=== PATIENT | male | born 1960 | race African-American/Black ===

== ENCOUNTER 2017-09-20 21:41 | Inpatient (IN) | payer OTHER ==
[~2017-09-20] VITALS: Ht 177.8 cm; Wt 113.4 kg
--- NOTE | ~2017-09-20 | 2DMMODE ---
[facility] [address] [place] [address] 2 D/M-MODE ECHOCARDIOGRAM Name: MIHIR HAGEN Room #: 357-P ADM IN M.R.#: [id number] Admission: 09/21/17 Attend Phys: Darell Noriega MD Discharge: Date of : 58 Date of Service: 09/21/17 1207 Report #: [id number] THIS REPORT FOR: //name// APPROVED REPORT Study performed: 09/21/2017 09:59:11 EXAM: Comprehensive 2D, Doppler, and color-flow Echocardiogram Patient Location: Echo lab Room #: 357 Status: routine BSA: 2.29 HR: 87 bpm BP: 167/108 mmHg Other Information Study Quality: Good Indications Hypertension/HDD 2D Dimensions RVDd: 46.10 mm LVEF(%): 80.11 (>50%) IVSd: 11.59 (7-11mm) LVOT Diam: 23.95 (18-24mm) LVDd: 66.34 mm PWd: 9.94 (7-11mm) Ascending Ao: 38.44 (22-36mm) LVDs: 33.26 (25-40mm) Aortic Root: 33.43 mm IVC: 12.00 mm Cabello's LVEF: 80.11 % Volumes Left Atrial Volume (Systole) Single Plane 4CH: 77.36 mL Single Plane 2CH: 82.48 mL LA ESV Index: 38.00 mL/m2 Aortic Valve AoV Peak Jeremias.: 1.56 m/s AO Peak Gr.: 9.78 mmHg LVOT Max P.80 mmHg LVOT Max V: 0.98 m/s RIGO Vmax: 2.81 cm2 Mitral Valve E/A Ratio: 1.0 MV Decel. Time: 111.80 ms MV E Max Jeremias.: 0.89 m/s [facility] [place] [address] 2 D/M-MODE ECHOCARDIOGRAM Name: MIHIR HAGEN Room #: 357-P [facility] IN M.R.#: [id number] Admission: 09/21/17 Attend Phys: Darell Noriega MD Discharge: Date of : 58 Date of Service: 09/21/17 1207 Report #: [id number] MV A Jeremias.: 0.91 m/s MV PHT: 32.42 ms IVRT: 96.89 ms Pulmonary Valve PV Peak Jeremias.: 1.46 m/s PV Peak Gr.: 8.54 mmHg Pulmonary Vein P Vein S: 0.46 m/s P Vein A: 0.25 m/s P Vein D: 0.32 m/s P Vein S/D Ratio: 1.44 Tricuspid Valve TR Peak Jeremias.: 1.44 m/s TR Peak Gr.: 8.25 mmHg Left Ventricle The left ventricle is normal size. There is normal LV segmental wall motion. Mild concentric left ventricular hypertrophy. The left ventricular systolic function is normal. The left ventricular ejection fraction is within the normal range. LVEF is 55-60%. The left ventricular diastolic function is normal. Right Ventricle The right ventricle is normal size. The right ventricular systolic function is normal. Atria Left atrium is dilated. The right atrium size is normal. Aortic Valve The aortic valve is normal in structure. No aortic regurgitation is present. There is no aortic valvular stenosis. Mitral Valve The mitral valve is normal in structure. Trace mitral regurgitation. No evidence of mitral valve stenosis. Tricuspid Valve The tricuspid valve is normal in structure. Trace tricuspid regurgitation. Unable to assess PA pressure. Pulmonic Valve The pulmonary valve is normal in structure. There is no pulmonic valvular regurgitation. [facility] [address] [place] [address] 2 D/M-MODE ECHOCARDIOGRAM Name: MIHIR HAGEN Room #: 357-P [facility] IN ..#: [id number] Admission: 09/21/17 Attend Phys: Darell Noriega MD Discharge: Date of : 58 Date of Service: 09/21/17 1207 Report #: [id number] Great Vessels The aortic root is normal in size. IVC is normal in size and collapses >50% with inspiration. Pericardium There is no pericardial effusion. <Conclusion> The left ventricle is normal size. Mild concentric left ventricular hypertrophy. LVEF is 55-60%. Left atrium is dilated. The aortic valve is normal in structure. The mitral valve is normal in structure. Trace mitral regurgitation. The tricuspid valve is normal in structure. Trace tricuspid regurgitation. Unable to assess PA pressure. The pulmonary valve is normal in structure. There is no pericardial effusion. <ELECTRONICALLY SIGNED> By: Carrington Smith MD 09/21/171206 06 06 Carrington Smith MD /INF
--- NOTE | ~2017-09-20 | EKG ---
[place] [address] [facility] [place] [address] ELECTROCARDIOGRAM REPORT Name: BRIDGER HAGENNDRE Room #: 357-P ADM IN M.R.#: [id number] Admission: 09/21/17 Attend Phys: Feng Ley MD Discharge: Date of : 58 Report #: [id number] THIS REPORT FOR: //name// [facility] ED Test Date: 2017-09-20 Test Time: 22:49:56 Pat Name: MIHIR HAGEN Department: Room: Gender: M Launch Check Out: PAM : 1960 Requested By: Evelyn Chinchilla Order Number: [id number] MD: Les López Measurements Intervals [place] Rate: 95 P: 52 DE: 162 QRS: 18 QRSD: 111 T: 187 QT: 356 QTc: 448 Interpretive Statements Sinus rhythm Biatrial enlargement Left ventricular hypertrophy Abnormal T, consider ischemia No previous ECG available for comparison Electronically Signed On 09-21-2017 7:20:40 CDT by Les López [email or web address] <ELECTRONICALLY SIGNED> By: Les López MD, [facility] 09/21/17 0720 D: [id number] Les López MD, FAC /EPI
[2017-09-20 22:09] LABS: URINE BILIRUBIN NEGATIVE (Negative); URINE BLOOD NEGATIVE (Negative); URINE CLARITY CLEAR; URINE COLOR YELLOW; URINE GLUCOSE-RANDOM* NEGATIVE (Negative); URINE KETONES NEGATIVE (Negative); URINE LEUKOCYTES-REFLEX NEGATIVE (Negative); URINE NITRITE-REFLEX NEGATIVE (Negative); URINE PROTEIN (DIPSTICK) NEGATIVE (Negative); URINE UROBILINOGEN 0.2 E.U./dl (0.2-1.0)
[2017-09-20 22:16] LABS: BASOPHILS 0.7 % (0.0-2.0); CALCIUM 8.7 mg/dL (8.5-10.1); CREATININE 1.2 mg/dL (0.7-1.3); EOSINOPHILS 1.6 % (0.0-3.0); HEMATOCRIT 38.9 % (42.0-52.0); LYMPHOCYTES 27.9 % (24.0-44.0); MCHC 33.5 g/dL (28.0-37.0); MCV 80.7 fL (80.0-100.0); PLATELET COUNT 245 thou/uL (150-400); POLYS 60.8 % (36.0-66.0); POTASSIUM 3.5 mmol/L (3.5-5.1); RBC 4.82 mil/uL (4.50-6.00); RDW 15.1 % (10.5-14.5); WBC 6.5 thou/uL (4.0-11.0)
[2017-09-20 22:18] VITALS: BP 218/119
[2017-09-20 22:22] LABS: ALBUMIN 3.9 g/dL (3.4-5.0); TOTAL BILIRUBIN 0.2 mg/dL (<0.1-1.0); TOTAL PROTEIN 7.9 g/dL (6.4-8.2)
[2017-09-21] VITALS (8 sets, daily range): BP systolic 147–188; BP diastolic 92–111
[2017-09-21 11:12] LABS: GLYCOHEMOGLOBIN (HGB A1C) 5.5 % (4.8-5.6)
[2017-09-22 00:42] VITALS: BP 133/82
[2017-09-22 04:03] VITALS: BP 141/98
[2017-09-22 07:26] VITALS: BP 157/116
[2017-09-22] MEDS ORDERED: LISINOPRIL20 MG PO (08:39)
[2017-09-22 09:07] VITALS: BP 157/116
== END 2017-09-22 10:20 | disposition home or self-care (01) | DRG 305 ==
LOC: EDBD 21:41 → ER 21:41 → EROBS 09-21 00:31 → 3W 09-21 00:31 → ENTRNSPT 09-22 09:48 → EDTRNSPTSTS 09-22 09:50 → 3W 09-22 10:20
PROVIDERS: Nurse Practitioner Family
DX: I16.1 Hypertensive emergency (principal); I10 Essential (primary) hypertension; R73.9 Hyperglycemia, unspecified; I16.0 Hypertensive urgency; K59.00 Constipation, unspecified; Z79.899 Other long term (current) drug therapy; Z82.49 Family history of ischemic heart disease and other diseases of the circulatory system
CPT/HCPCS: 10879